=== PATIENT | male | born 1995 | race Two or more races ===

== ENCOUNTER 2016-04-16 23:16 | Emergency (ER) | payer SELFPAY ==
[~2016-04-16] VITALS: Ht 167.6 cm; Wt 95.3 kg
[2016-04-17] MEDS ORDERED: LORazepam 0.5 MG TAB PO ONE (08:00)
[2016-04-17 09:25] VITALS: BP 133/69
== END 2016-04-17 10:16 | disposition home or self-care (01) ==
LOC: ER 23:19
DX: F41.9 Anxiety disorder, unspecified (principal); J02.9 Acute pharyngitis, unspecified; F12.10 Cannabis abuse, uncomplicated; R07.9 Chest pain, unspecified
CPT/HCPCS: 36415; 83735; 84484; 93005; 99285; G0434

== ENCOUNTER 2020-12-27 15:21 | Emergency (ER) | payer OTHER ==
[~2020-12-27] VITALS: Ht 170.2 cm; Wt 99.8 kg
[2020-12-27 16:54] VITALS: BP 148/71
[2020-12-27] MEDS ORDERED: KETOROLAC TROMETH 60MG/2ML VIAL IM ONE ×2 (17:00→17:15)
[2020-12-27] MEDS ORDERED: cefTRIAXone SOD 1,000 MG VL IM ONE (17:15)
[2020-12-27] MEDS ORDERED: TETANUS-DIPTH-ACEL PERTUSSIS 0.5ML SYR Tdap IM ONE (17:30)
== END 2020-12-27 19:12 | disposition home or self-care (01) ==
LOC: ER 15:21
DX: S61.213A Laceration without foreign body of left middle finger without damage to nail, initial encounter (principal); S61.215A Laceration without foreign body of left ring finger without damage to nail, initial encounter; W20.8XXA Other cause of strike by thrown, projected or falling object, initial encounter; Y93.89 Activity, other specified; Y92.89 Other specified places as the place of occurrence of the external cause; Y99.0 Civilian activity done for income or pay
CPT/HCPCS: 11740; 12001; 73130; 90471; 90715; 96372; 99284; J0696; J1885

== ENCOUNTER 2024-11-24 11:31 | Emergency (ER) | payer OTHER ==
[~2024-11-24] VITALS: Ht 170.2 cm; Wt 100.0 kg
[2024-11-24 13:17] LABS: Urine Protein, UAD TRACE (Negative)
--- NOTE | 2024-11-24 13:46 | ED.PDOC ---
SOB-HPI HPI Comments 29-year-old male who presents to the ED for chief complaint of flu-like symptoms. Patient states since Saturday for the past three days he has been having restlessness fatigue chest pains headache with the associated nausea vomiting diarrhea. Patient states he feels out of it. Patient states he did take Tylenol today with a minimal relief. Patient otherwise denies any recent sick contacts or changes to diet. Patient has not noted blood pressure 143/59 but otherwise has stable vitals in the ED. patient otherwise is alert and oriented x4. Patient otherwise denies any other symptoms at this time. Chief Complaint: Flu like Time Seen by MD: 13:15 Primary Care Provider: DENIES Reviewed notes: Medications, Allergies Information Source: Patient Mode of Arrival: Ambulatory Past Medical History PAST MEDICAL HISTORY: Denies Surgical History: Denies all surgeries Family History Family History: Unknown Social History Smoker: Non-Smoker Alcohol: Denies ETOH Use Drugs: Denies Drug Use All Other Systems: Reviewed and Negative (See HPI) Physical Exam General Appearance: No Apparent Distress, Normal HEENT: Normal ENT Inspection, Pharynx Normal, TMs Normal Neck: Full Range of Motion, Non-Tender, Normal, Normal Inspection Respiratory: Other (Lungs clear) Cardiovascular: No Edema, No JVD, No Murmur, No Gallop, Normal Peripheral Pulses, Regular Rate/Rhythm Breast Exam: Deferred Gastrointestinal: No Organomegaly, Non Tender, No Pulsatile Mass, Normal Bowel Sounds, Soft Genitalia: Deferred Pelvic: Deferred Rectal: Deferred Extremities: No calf tenderness, Normal capillary refill, Normal inspection, Normal range of motion, Non-tender, No pedal edema Musculoskeletal : Apperance: Normal Neurologic: Alert, 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 Was a procedure done?: No Differential Dx Differential Diagnosis: Pneumonia, URI Comments Viral syndrome COVID GC chlamydia X-Ray, Labs, Meds, VS Vital Signs Date Time Temp Pulse Resp B/P (MAP) Pulse Ox O2 Delivery O2 Flow Rate FiO2 11/24/24 11:34 98.7 99 16 143/59 97 98.7 Lab Test 11/24/24 13:54 11/24/24 12:42 Range/Units White Blood Count 9.0 4.4-10.8 10^3/uL Red Blood Count 5.43 4.5-5.90 10^6/uL Hemoglobin 16.1 13.5-17.5 g/dL Hematocrit 47.2 41.0-53.0 % Mean Corpuscular Volume 86.9 80.0-100.0 fL Mean Corpuscular Hemoglobin 29.7 28.0-32.0 pg Mean Corpuscular Hemoglobin Concent 34.1 32.0-36.0 g/dL Red Cell Distribution Width 13.1 11.8-14.3 % Platelet Count 257 140-450 10^3/uL Mean Platelet Volume 7.0 6.9-10.8 fL Neutrophils (%) (Auto) 72.4 37.0-80.0 % Lymphocytes (%) (Auto) 17.0 10.0-50.0 % Monocytes (%) (Auto) 9.7 0.0-12.0 % Eosinophils (%) (Auto) 0.5 0.0-7.0 % Basophils (%) (Auto) 0.4 0.0-2.0 % Neutrophils # (Auto) 6.5 1.6-8.6 10 ^3/uL Lymphocytes # (Auto) 1.5 0.4-5.4 10 ^3/uL Monocytes # (Auto) 0.9 0-1.3 10 ^3/uL Eosinophils # (Auto) 0 0-0.8 10 ^3/uL Basophils # (Auto) 0 0-0.2 10 ^3/uL Nucleated Red Blood Cells 0.0 % Sodium Level 140 136-145 mmol/L Potassium Level 3.6 3.5-5.1 mmol/L Chloride Level 104 98-107 mmol/L Carbon Dioxide Level 29 20-31 mmol/L Anion Gap 7 5-15 Blood Urea Nitrogen 8 L 9-23 mg/dL Creatinine 0.90 0.700-1.30 mg/dL Glomerular Filtration Rate Calc 119 >90 mL/min BUN/Creatinine Ratio 8.9 L 10.0-20.0 Serum Glucose 97 74-106 mg/dL Calcium Level 9.6 8.7-10.4 mg/dL HIV (1&2) Antibody Pending Urine Color Yellow Yellow Urine Clarity Clear Clear Urine pH 6.5 5.0-9.0 Urine Specific [place] 1.031 1.001-1.035 Urine Protein Trace H Negative Urine Ketones Negative Negative Urine Blood Negative Negative /uL Urine Nitrite Negative Negative Urine Bilirubin Negative Negative Urine Urobilinogen 3 H Negative mg/dL Urine Leukocyte Esterase Negative Negative /uL Urine RBC 3 0 - 3 /hpf Urine Microscopic WBC 1 0-3 /HPF Urine Squamous Epithelial Cells Few <5 /hpf Urine Bacteria None seen None Seen /hpf Urine Mucus Few None Seen Urine Glucose Normal Normal mg/dL Chlamydia trachomatis (WEN) Pending Neisseria gonorrhoeae (WEN) Pending X-Ray, Labs, Meds, VS Comment 29-year-old male who presents to the ED for chief complaint of flu-like symptoms. Patient arrives alert and oriented, ABC's intact, afebrile, vital signs stable, saturating well in room air Peripheral IV insertion+ labs were ordered. CBC was ordered to exclude anemia, blood loss, or infection. BMP was ordered to exclude electrolyte abnormalities, renal failure, dehydration, hyperglycemia CMP was ordered to exclude electrolyte abnormalities, renal failure, dehydration, hyperglycemia and/or liver enzyme abnormalities. Urinalysis was ordered to rule out UTI or hematuria. Labs in the ED showed (pertinent+ and then pertinent-) Patient was given:_. Tolerated medications with no adverse reaction. Additional MDM Review of External, Non-ED records: External records reviewed. Discussion with independent historian (EMS, family) history obtained from the patient/parents (if applicable) at bedside Chronic conditions affecting care: None Social determinants of health affecting care: None Consideration of admission (observation or admission): I considered escalation of care to admission for this patient, however given the reassuring workup, the patient is safe for outpatient management. Discussion with the Radiology: No Tests considered but not performed: Prescription medication considered but not given: 12 lead EKG interpretation: Patient Education/Counseling: Diagnosis, Treatment Family Education/Counseling: No Family Present SEPSIS Sepsis Screen Date sepsis recognized/suspect: Nov 24, 2024 Time Sepsis recognized/suspect: 1136 Recent Procedure: No On Antibiotic Therapy: No Respiratory Rate >20: No Heart Rate >90: Yes Temp<36 C (96.8 F) or >38.3 C: No SBP <90 or MAP <65 mmHG: No New Acute Mental Status Change: No Is the patient on CPAP, BIPAP,: No Physician Orders Chlamydia/Gc Amplification (11/24/24 12:33) Hiv 1&2 Antibody (11/24/24 12:33) Vital Signs Date Time Temp Pulse Resp B/P (MAP) Pulse Ox O2 Delivery O2 Flow Rate FiO2 11/24/24 11:34 98.7 99 16 143/59 97 98.7 Laboratory Tests Test 11/24/24 13:54 White Blood Count 9.0 10^3/uL (4.4-10.8) Departure 1 Departure Time of Disposition: 14:51 Impression: Primary Impression: Viral syndrome Disposition: HOME / SELF CARE / HOMELESS Condition: Stable Discharged With: Self Critical Care Note Critical Care Time?: No Stability Stability form required: No Heart Score Heart Score: Heart Score Response (Comments) Value History N/A 0 EKG N/A 0 Age N/A 0 Risk Factors N/A 0 Troponin N/A 0 Total 0 I personally scribed for IVÁN RICO NP ([email or web address]) on 11/24/24 at 13:46. Electronically submitted by Rik Schultz ([email or web address]). IVÁN RICO NP Nov 24, 2024 13:46
[2024-11-24 14:06] LABS: Hematocrit 47.2 % (41.0-53.0); Hemoglobin 16.1 g/dL (13.5-17.5); Mean Corpuscular Hemoglobin 29.7 pg (28.0-32.0); Mean Corpuscular Volume 86.9 fL (80.0-100.0); Nucleated Red Blood Cells % 0.0 %
[2024-11-24 14:15] LABS: Chloride 104 mmol/L (98-107); Potassium 3.6 mmol/L (3.5-5.1); Sodium 140 mmol/L (136-145)
[2024-11-24 14:16] LABS: Anion Gap 7 (5-15); Calcium 9.6 mg/dL (8.7-10.4); Carbon Dioxide 29 mmol/L (20-31)
[2024-11-24 14:21] LABS: BUN/Creatinine Ratio 8.9 (10.0-20.0); Glucose 97 mg/dL (74-106)
[2024-11-24 14:23] LABS: Blood Urea Nitrogen 8 mg/dL (9-23)
[2024-11-24 15:04] VITALS: BP 135/68; PULSE 57; RESP 16; TEMP 97.8; O2SAT 96
[2024-11-25 15:07] LABS: Chlamydia Trachomatis, NAA Negative (Negative); Neisseria gonorrhoeae, NAA Negative (Negative)
== END 2024-11-24 15:00 | disposition home or self-care (01) ==
LOC: ER 11:31
DX: B34.9 Viral infection, unspecified (principal); R53.83 Other fatigue
CPT/HCPCS: 36415; 80048; 81001; 85025; 86703